=== PATIENT | male | born 1995 | race Caucasian/White ===

== ENCOUNTER 2021-05-05 20:53 | Emergency (ER) | payer OTHER, SELFPAY ==
--- NOTE | ~2021-05-05 | US_ITS ---
EXAMINATION: US scrotum doppler DATE: 05/05/2021 22:59 INDICATION: Left testicular pain and swelling TECHNIQUE: Testicular sonogram utilizing grayscale and Doppler COMPARISON: None. FINDINGS: The right testis measures 5.2 x 2.2 x 3.2 cm. The left testis measures 0.0 x 2.6 x 3.6 cm. Symmetric normal grayscale appearance to both testes. There is prominent hyperemia of the left testis relative to the right. In addition the left epididymis appears relatively thickened and similarly hyperemic re lative to the normal right epididymis. Findings are consistent with left epididymoorchitis. 1.3 x 1.2 x 1.2 cm anechoic fluid collection with a few thin internal septations situated between the left vanna tis and epididymis which could represent either an epididymal cyst or small loculated left hydrocele. Small right hydrocele. There is no varicocele. IMPRESSION: 1. Left epididymoorchitis. 2. Small right hydrocele and small loculated fluid collection along the left testis and epididymis wh ich could represent either an additional small left hydrocele or epididymal cyst. Reviewed, dictated and finalized at location A. HOLOGIST IMPRESSION: 1. Left epididymoorchitis. 2. Small right hydrocele and small loculated fluid collection along the left te stis and epididymis which could represent either an additional small left hydro vignesh or epididymal cyst.
[2021-05-05 21:12] VITALS: BP 173/104; PULSE 93; RESP 18; TEMP 37.7; O2SAT 99
[2021-05-05 22:08] LABS: Basophils Percent Auto 0.2 % (0.2-1.2); Eosinophils Absolute Auto 0.1 K/mm3 (0-0.3); Eosinophils Percent Auto 0.7 % (0-4.4); Hematocrit 43.5 % (42.0-52.0); Immature Granulocyte Absolute 0.06 K/mm3 (0.00-0.031); Immature Granulocyte Percent A 0.4 % (0-0.5); Lymphocytes Absolute Auto 1.88 K/mm3 (0.9-3.2); Lymphocytes Percent Auto 13.8 % (18.3-44.2); Mean Corpuscular HGB Conc 34.5 g/dl (32-36); Mean Corpuscular Hemoglobin 31.4 pg (26-34); Mean Platelet Volume 10.3 fl (7.4-10.4); Monocytes Percent Auto 7.1 % (2.6-8.5); Neutrophils Absolute Auto 10.6 K/mm3 (1.3-6.7); Neutrophils Percent Auto 77.8 % (45.5-73.1); Platelet Count Result 225 k/mm3 (150-375); Red Blood Count 4.78 M/mm3 (4.6-6.20); Red Cell Distribution Width 12.2 % (11.5-14.5); White Blood Count 13.6 K/mm3 (4.5-10.0)
--- NOTE | 2021-05-05 22:11 | ED.GENADULT ---
HPI - General Adult General Chief complaint: Urogenital-Male Stated complaint: swollen left testicle Time Seen by Provider: 05/05/21 21:46 Source: RN notes reviewed History of Present Illness HPI narrative: Patient presents emergency room from home for left testicular swelling. Patient states he notes approximately 5 PM today his left testicle was aching in nature and swollen and states that the pain is described as throbbing in nature and does not radiate he notes mild burning with urination he denies any fevers or chills abdominal pain nausea or vomiting urethral discharge or any other symptoms denies any risk of sexually transmitted disease Related Data Allergies Allergy/AdvReac Type Severity Reaction Status Date / Time No Known Drug Allergies Allergy Verified 05/05/21 23:45 Review of Systems Review of Systems: Gen.: Denies fevers or chills ENT: Denies congestion Respiratory: Denies shortness of breath CV: Denies chest pain GI: Denies abdominal pain nausea, emesis or diarrhea see HPI Musculoskeletal: Denies back pain or muscle pain Neuro: Denies numbness, tingling, weakness or focal weakness Skin: Denies rash Except as documented, all other systems reviewed and negative [facility] Past Medical History Medical History (Updated 05/05/21 @ 23:54 by Colby Atwood DO) Patient denies significant medical history Social History Social History (Updated 05/05/21 @ 22:12 by Colby Atwood DO) Smoking status: Never smoker Exam Narrative: APPEARANCE: No acute distress, nontoxic, resting in bed EYES: EOMI HEENT: Normocephalic, atraumatic, OMM RESPIRATORY: No respiratory distress ABDOMINAL: Soft, nontender, nondistended, no rebound or guarding MUSCULOSKELETAl: Moves all extremities. No clubbing, cyanosis or edema. : Normal external exam no skin lesions seen no scrotal swelling or erythema the left testicle is swollen and tender to palpation no tenderness of the right testicle NEURO: Awake and alert. Following commands, speech normal, no focal deficits SKIN:: Warm, dry. No rashes lesions or abrasions PSYCHIATRIC: Normal affect/mood, Course Course Emergency Course: : Discussed with Dr. Diez urology presentation and work-up. At this time recommends patient receive treatment for STD with Rocephin and doxy as well as started on Bactrim will discharge and follow-up as an outpatient Discussed with patient results of workup and diagnosis. Discussed need for follow-up with primary care, proper use of medication, and reasons to return to the emergency department. Patient understands and agrees to current treatment plan Vital Signs Vital signs: Vital Signs Temperature 99.8 F H 05/05/21 21:12 Pulse Rate 93 05/05/21 21:12 Respiratory Rate 18 05/05/21 21:12 Blood Pressure 173/104 H 05/05/21 21:12 Pulse Oximetry 99 05/05/21 21:12 Temperature 99.8 F H 05/05/21 21:12 Pulse Rate 93 05/05/21 21:12 Respiratory Rate 18 05/05/21 21:12 Blood Pressure 173/104 H 05/05/21 21:12 Pulse Oximetry 99 05/05/21 21:12 Medical Decision Making Vital Signs Vital Signs: Vital Signs Temperature 99.8 F H 05/05/21 21:12 Pulse Rate 93 05/05/21 21:12 Respiratory Rate 18 05/05/21 21:12 Blood Pressure 173/104 H 05/05/21 21:12 Pulse Oximetry 99 05/05/21 21:12 Temperature 99.8 F H 05/05/21 21:12 Pulse Rate 93 05/05/21 21:12 Respiratory Rate 18 05/05/21 21:12 Blood Pressure 173/104 H 05/05/21 21:12 Pulse Oximetry 99 05/05/21 21:12 Lab Data Result diagrams: 05/05/21 22:02 05/05/21 22:02 Labs: Lab Results 05/05/21 05/05/21 05/05/21 Range/Units 22:02 22:02 22:39 WBC 13.6 H (4.5-10.0) K/mm3 RBC 4.78 (4.6-6.20) M/mm3 Hgb 15.0 (14.0-18.0) g/dL Hct 43.5 (42.0-52.0) % MCV 91.0 (80-100) fl MCH 31.4 (26-34) pg MCHC 34.5 (32-36) g/dl RDW 12.2 (11.5-14.5) % Plt Count 225 (150-375) k/mm3 MPV 10.
[2021-05-05 22:43] LABS: Alanine Aminotransferase 52 U/L (4-50); Albumin Level 4.8 g/dL (3.5-5.1); Alkaline Phosphatase 66 U/L (38-126); Anion Gap 10 mmol/L (8-16); Aspartate Amino Transferase 33 U/L (17-59); Blood Urea Nitrogen 14 mg/dL (9-20); Calcium 9.8 mg/dL (8.4-10.2); Carbon Dioxide 24 mmol/L (22-30); Chloride 103 mmol/L (98-107); Estimated CRCL calculation 167 ml/min; Estimated Glomerular Filt Rate > 60; Glucose 99 mg/dL (65-110); Potassium 4.3 mmol/L (3.4-5.0); Sodium 137 mmol/L (137-145)
[2021-05-05 22:54] LABS: Add Urine Microscopic? YES; Appearance Urine Clear (Clear); Bilirubin Urine Negative (Negative); Blood Urine Negative (Negative); Color Urine Yellow (Yellow); Glucose Urine UA Negative (Negative); Ketones Urine Negative (Negative); Leukocyte Esterase Ur 3+ LEU/UL (Negative); Mucus Urine Rare /lpf; Nitrate Urine Positive (Negative); Protein Urine Negative (Negative); Specific Grav Ur 1.018 (1.001-1.035); Squamous Epithelial Cell Urine Occasional /hpf (Few); Urobilinogen Urine Negative mg/dL (<2.0); WBC Urine >75 /hpf
[2021-05-06] MEDS: DOXYCYCLINE HYCLATE 100 MG TABLET PO (00:43)
[2021-05-06] MEDS: HYDROcodone/acetaminophen (*CRX) 5-325 MG TABLET 1 TAB PO (00:43)
[2021-05-06] MEDS: cefTRIAXone 1 GM VIAL 0.5 GM IM (00:45)
[2021-05-06] MEDS: LIDOCAINE HCL 1% LOCAL INJ 20 ML VIAL 2.1 ML XX (00:46)
[2021-05-06 00:57] VITALS: BP 127/70; PULSE 74; RESP 16; O2SAT 99
== END 2021-05-06 00:59 | disposition home or self-care (01) ==
PROVIDERS: Emergency Provider Emergency Medicine
DX: N45.3 Epididymo-orchitis (principal); N39.0 Urinary tract infection, site not specified
CPT/HCPCS: 36415; 76870; 80053; 81001; 85025; 87086; 87147; 87181; 87186; 87491; 87591; 93976; 96372; 99284; A9270; J0696

== ENCOUNTER 2024-04-05 00:09 | Day surgery (SDC) | payer OTHER, SELFPAY ==
[2024-04-02 11:25] VITALS: BMI 38.3
--- NOTE | 2024-04-02 11:33 | PC.NURSE ---
Report to the Outpatient Waiting Room, entrance under the green pavilion located off [facility], at time _0600_ on date _[id number]_. Planned Procedure Time: _07_.? Time changes happen often and if your time is changed the preop area will call you the afternoon before. - You and your visitor will be asked to self-screen and do not enter if you have any COVID symptoms. Please call surgeon if you need to reschedule. - A mask is optional within the hospital at this time. Patients may have clear liquids (water, carbonated beverages, clear teas, apple juice) until 3 hours prior to surgery with a maximum of 20 ounces. - No food from midnight until time of surgery and no smoking. This includes no chewing gum, candy or mints. Take only the following medications with a SIP of water on the morning of surgery: __Cipro DO NOT STOP ANY OF YOUR OTHER PRESCRIPTION MEDICATIONS PRIOR TO SURGERY EXCEPT THE FOLLOWING Medications to discontinue per physician None____ Date to take last dose Please no make-up, nail greek, hairspray, perfume, deodorant, or body powder the day of surgery.? No jewelry (including any body piercings) or valuables the day of surgery, leave them at home.? Please take a shower or bath the night before, or the morning of, surgery with an antibacterial soap.? Wear comfortable, loose fitting clothing.? - Jewelry must be removed prior to entering the operating room.? Rings and piercings that are not removed may be cut off. - The hospital will not accept responsibility for valuables.? - Please leave all valuables, including medications, at home the day of surgery. If you are going home after surgery, a licensed van cdl driver must drive you home.? - NO public transportation without another adult if you receive anesthesia. - We recommend that an adult stay with you for 24 hours following discharge. - We also recommend that you do not drive, make important decision, drink alcoholic beverages, or take any drugs that were not prescribed by your health care provider for at least 24 hours after your discharge time. Follow any additional instructions given to you from your surgeon. Telephone instructions given to __Eli__and asked if any additional questions and then verbalized understanding. Patient advised to call surgeon office or pre surgery nurse liaison [phone] if any additional questions.
[2024-04-05] VITALS (7 sets, daily range): BP systolic 112–131; BP diastolic 70–89; PULSE 48–88; RESP 12–20; TEMP 36.3–36.4; O2SAT 95–99
--- NOTE | ~2024-04-05 | XR_ITS ---
EXAMINATION: XR urethrocystogram DATE: 04/05/2024 08:20 INDICATION: Urethral stricture. TECHNIQUE: 3 intraoperative fluoroscopic views of the pelvis were obtained. I was not present. Fluoro scopy exposure time was 28 seconds. COMPARISON: None. FINDINGS: The retrograde urethrogram demonstrates a stricture of the bulbar urethra. Images demonstra te a dilator across the stricture. IMPRESSION: 1. Stricture of the bulbar urethra status post dilation. Reviewed, dictated and finalized at location A. SHAW DRIVER
--- NOTE | 2024-04-05 06:52 | WPDANESEPPF ---
Anes - Initial Pre Proc Eval Procedure: Operation Date: 04/05/24 07:30 Proposed Procedures p Cystoscopy, Retrograde Urethrogram with Urethral Dilation - Radames Camacho MD Date/Time: 04/05/24 06:52 Surgeon: Radames Camacho MD Pre Op Diagnosis: Urethral Stricture Patient Data Age: 28 Gender: M Height: 2.01 m Weight: 154.5 kg Allergies Allergy/AdvReac Type Severity Reaction Status Date / Time No Known Allergies Allergy Verified 04/02/24 11:23 Home Medications ?Medication ?Instructions ?Recorded ?Confirmed ?Type ciprofloxacin HCl 500 mg tablet 500 mg PO Q12H 04/02/24 04/02/24 History (Cipro) Patient hx anesthesia problems: none Family hx anesthesia problems: none Results Review: All pre-operative results and documents have been reviewed as part of the pre-operative evaluation. [facility] Past Medical History Medical History (Updated 04/05/24 @ 06:53 by Kerwin Poole MD) GUSTAVO (obstructive sleep apnea) Asthma Obesity Social History Social History Years smoked: 2 Smoking status: Former smoker Tobacco type: cigarettes and e-cigarettes/vaping Smoking end date: 04/02/16 Additional smoking assessment comments: Quit vaping May 2023 Alcohol intake: current Substance use: current Substance use type: marijuana Other substance usage details: Rarely Living arrangements: with family Spiritual care concerns: No Anes - Eval Final PreProcedure Day of Procedure 04/05/24 06:52 Patient weight: obese Heart: regular rate and rhythm Lungs: clear to auscultation Airway: Mallampati scale class II Neurological: alert and oriented Last oral intake: >/= 8 hours ASA classification: III Emergent: no Anesthetic plan: proceed Anesthesia type and monitoring: general LMA and standard monitoring Results Review: All pre-operative results and documents have been reviewed as part of the pre-operative evaluation. Informed Consent: The patient's anesthetic plan and its attendant risks and benefits were discussed with the patient/family/POA. Questions were solicited and answers provided to the satisfaction of the patient/family/POA.
[2024-04-05] MEDS: LACTATED RINGERS 1,000 ML 30 ML IV CONT (07:00)
--- NOTE | 2024-04-05 07:29 | WPDHPUPDATE1 ---
History and Physical Update Update Date/Time: 04/05/24 07:29 History and Physical has been reviewed, including an updated exam of the patient. There are NO changes in the patient's condition. Risks, benefits, and alternatives have been discussed and questions answered. Patient agrees to proceed with procedure.
[2024-04-05] MEDS: ceFAZolin 3 GM/D5W 100 ML 100 ML IVPB (07:36)
[2024-04-05] MEDS: LIDOCAINE 2% GEL UROJET 10 ML PKG MUCOUS MEM (07:36)
--- NOTE | 2024-04-05 08:19 | P.OP_ITS ---
Procedure Note - Detailed Date of Procedure 04/05/24 Pre-op Diagnosis Urethral Stricture Post-op Diagnosis Same Procedure Performed Retrograde urethrogram, urethral dilation, cystoscopy, complex Grimes catheter placement Surgeon Radames Camacho MD Anesthesia General Description of Procedure Patient was taken to the operative suite correctly identified. Once anesthesia was obtained was placed in dorsal lithotomy position and prepped and draped usual sterile fashion. Twenty-two [place] scope inserted urethra. He has a bulbar stricture which would not allow its passage. At this point time 16 [place] was inserted into the meatus and a retrograde urethrogram was performed. This stricture was easily visualized. Contrast made its way into the bladder. At this point a Super Stiff wire was placed under fluoroscopy. Using Amplantz dilators I dilated the urethra up to 24 [place]. Reinspection allowed passage of a 22 [place] scope. The stricture was about a cm from the sphincter. Prostate was nonobstructive. The bladder itself had no discrete tumors. It did appear somewhat distended. It also drained close to a L of fluid. At this point time 2% viscous lidocaine was inserted into the urethra. Eighteen [place] tip was placed over the guidewire. 10 cc were placed in the balloon. Patient is taken to recovery stable condition. Will leave the catheter until Monday for a voiding trial. I will personally see him in 3-4 weeks time. Will make decision regarding cystoscopy at that time based on his bladder scan. Patient may need to learn intermittent catheterization and/or self urethral dilation. This completes dictation. Please send a copy of op note to my office Estimated Blood Loss 0 Drains Yes Pathology None sent Complications No immediate complications Condition Stable Disposition PACU
[2024-04-05] MEDS: oxyCODONE HCL (*CRX) 5 MG TAB IR PO (09:14)
--- OUTSIDE RECORDS SUMMARY | 2024-04-11 04:35 | XMS_ITS | Clinical Summary ---
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
--- OUTSIDE RECORDS SUMMARY | 2024-04-11 04:35 | XMS_ITS | Encounter Summary ---
Author Organization [facility] [employer] Address 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
== END 2024-04-05 10:17 | disposition home or self-care (01) ==
PROVIDERS: Visit Provider Urology
PROC: (CPT 52352; principal; 2024-04-05 07:30)
DX: N35.912 Unspecified bulbous urethral stricture, male (principal); N50.89 Other specified disorders of the male genital organs; R33.8 Other retention of urine; J45.909 Unspecified asthma, uncomplicated; G47.33 Obstructive sleep apnea (adult) (pediatric); F12.90 Cannabis use, unspecified, uncomplicated; E66.9 Obesity, unspecified; Z68.38 Body mass index [BMI] 38.0-38.9, adult; Z87.891 Personal history of nicotine dependence
CPT/HCPCS: 52281; 51610; 74450; A9270; C1726; C1769; J0690; J1100; J2003; J2250; J2405; J2704; J3010; J7120; Q9966